=== PATIENT | female | born 1970 | race Two or more races ===

== ENCOUNTER 2024-12-23 16:14 | Inpatient (IN) | payer OTHER ==
[~2024-12-23] VITALS: Ht 167.6 cm; Wt 90.7 kg
[~2024-12-23 16:14] MED LIST: FLUVOXAMINE MAL25 MG PO; GRALISE600 MG; MINIVELLE1 EACH; PRAVASTATIN SOD20 MG PO; TOPROL XL25 M1
[2024-12-23] MEDS ORDERED: ZESTRIL5 MG PO (17:24)
[2024-12-23] MEDS ORDERED: METHYLPREDNISOLONE SOD SUCC 125 MG VIAL IV STA (17:54)
[2024-12-23] MEDS ORDERED: CEFTRIAXONE SODIUM 1,000 MG VIAL IV STA (17:54)
[2024-12-23] MEDS ORDERED: LIDOCAINE HCL 1% 10ML VIAL ONE (18:00)
[2024-12-23] MEDS ORDERED: CEFTRIAXONE SODIUM 1,000 MG VIAL ONE (18:00)
[2024-12-23] MEDS ORDERED: METHYLPREDNISOLONE SOD SUCC 125 MG VIAL ONE (18:00)
[2024-12-23 18:39] LABS: HEMATOCRIT 37.9 % (36.0-45.00); HEMOGLOBIN 13.1 g/dL (12.0-15.00); MEAN CELL VOLUME 90.5 fL (80.00-100.00); MEAN CORPUSCULAR HEMOGLOBIN 31.4 pg (27.00-32.0); MEAN CORPUSCULAR HGB CONC 34.7 g/dl (32.0-36.0); PLATELET COUNT 244 K/uL (150-450); RED BLOOD COUNT 4.18 M/uL (4.00-6.00); RED CELL DISTRIBUTION WIDTH 13.3 % (11.5-14.5)
[2024-12-23 19:13] LABS: CALCIUM 8.8 mg/dL (8.5-10.1); CREATININE SERUM 0.64 mg/dL (0.55-1.02); GFR 96.34; POTASSIUM 3.95 mEq/L (3.5-5.1)
[2024-12-23] MEDS ORDERED: LEVALBUTEROL HCL 1.25 MG/3 ML SOLUTION IH SCH (20:15)
[2024-12-23] MEDS ORDERED: BUDESONIDE 0.5 MG/2 ML AMPUL.NEB IH SCH (20:15)
[2024-12-23] MEDS ORDERED: BUDESONIDE 0.5 MG/2 ML AMPUL.NEB IH ONE (20:59)
[2024-12-23] MEDS ORDERED: LEVALBUTEROL HCL 1.25 MG/3 ML SOLUTION IH ONE (20:59)
[2024-12-23 21:08] LABS: ABG PH 7.401 (7.35-7.45); ABG PO2 70.2 mmHg (80-100); ABG pCO2 41.6 mmHg (35-45); BASE EXCESS 0.4 mmol/l; BICARBONATE 25.3 mmol/l (23-25); SaO2 93.9 %; Tco2 26.5 mmol/l
[2024-12-23 21:49] LABS: allen test SATISFACTORY; puncture site RADIAL RIGHT
[2024-12-23 21:50] LABS: o2 21 %
[2024-12-24] MEDS ORDERED: 0.9 % SODIUM CHLORIDE 1,000 ML IV SCH (01:00)
[2024-12-24] MEDS ORDERED: IPRATROPIUM/ALBUTEROL SULFATE 3 ML AMPUL.NEB IH SCH (01:00)
[2024-12-24 03:26] VITALS: BP 117/75; O2SAT 96
[2024-12-24 04:30] VITALS: BP 116/65; O2SAT 90
[2024-12-24] MEDS ORDERED: METHYLPREDNISOLONE SOD SUCC 40 MG VIAL IV SCH (06:00)
[2024-12-24] MEDS ORDERED: AZITHROMYCIN 500 MG VIAL IV ONE (08:37)
[2024-12-24] MEDS ORDERED: CEFTRIAXONE SODIUM 2,000 MG in 0.9 % SODIUM CHLORIDE 100 ML IV SCH (09:00)
[2024-12-24] MEDS ORDERED: METOPROLOL TARTRATE 25 MG TABLET PO SCH (09:00)
[2024-12-24] MEDS ORDERED: AZITHROMYCIN 500 MG VIAL IV SCH (09:00)
[2024-12-24] MEDS ORDERED: LISINOPRIL 5 MG TABLET PO SCH (09:00)
[2024-12-24 09:41] VITALS: BP 120/66; O2SAT 94
[2024-12-24] MEDS ORDERED: SIMVASTATIN 20 MG TABLET PO SCH (17:00)
[2024-12-24] MEDS ORDERED: LACTOBACILLUS ACIDOPHILUS 1 CAP CAP PO SCH (17:00)
[2024-12-24] MEDS ORDERED: PANTOPRAZOLE SODIUM 40 MG TABLET.DR PO SCH (17:06)
[2024-12-24] MEDS ORDERED: ENOXAPARIN SODIUM 40 MG/0.4 ML SYRINGE SUBCUTANEO SCH (17:07)
[2024-12-24] MEDS ORDERED: CODEINE PHOSPHATE/GUAIFENESIN 5 ML ML PO PRN (17:15)
[2024-12-24] MEDS ORDERED: BENZONATATE 100 MG CAPSULE PO PRN (17:15)
[2024-12-24 17:22] VITALS: BP 122/76; O2SAT 93
[2024-12-24] MEDS ORDERED: PANTOPRAZOLE SODIUM 40 MG TABLET.DR PO ONE (20:51)
[2024-12-24] MEDS ORDERED: PATIENTS OWN MEDICATION (MEDICAMENTO EN PISO) PO SCH (21:00)
[2024-12-24] MEDS ORDERED: GABAPENTIN 600 MG TABLET PO SCH (21:00)
[2024-12-25 00:55] VITALS: BP 144/72
[2024-12-25] MEDS ORDERED: AZITHROMYCIN 500 MG VIAL IV ONE (07:52)
[2024-12-25 09:51] VITALS: BP 147/82; O2SAT 96
[2024-12-25] MEDS ORDERED: CLONAZEPAM 1 MG TABLET PO SCH (10:50)
[2024-12-25] MEDS ORDERED: CODEINE PHOSPHATE/GUAIFENESIN 5 ML ML PO PRN (11:08)
[2024-12-25] MEDS ORDERED: GUAIFENESIN/DEXTROMETHORPHAN 100MG/10ML BLIST.PACK PO PRN (15:15)
[2024-12-25 16:37] VITALS: BP 127/52; O2SAT 100
[2024-12-25] MEDS ORDERED: METOPROLOL TARTRATE 25 MG TABLET PO SCH (17:00)
[2024-12-26 01:40] VITALS: BP 145/80; O2SAT 97
[2024-12-26] MEDS ORDERED: AZITHROMYCIN 500 MG VIAL IV ONE (08:00)
[2024-12-26 08:44] VITALS: BP 168/88
[2024-12-26] MEDS ORDERED: LISINOPRIL 5 MG TABLET PO STA (11:15)
[2024-12-26] MEDS ORDERED: ACYCLOVIR 400 MG TABLET PO STA (11:54)
[2024-12-26] MEDS ORDERED: POLYETHYLENE GLYCOL 3350 17 GM BLIST.PACK PO STA (11:55)
[2024-12-26 12:30] VITALS: BP 136/82
[2024-12-26 16:00] VITALS: BP 131/84; O2SAT 96
[2024-12-26] MEDS ORDERED: POLYETHYLENE GLYCOL 3350 17 GM BLIST.PACK PO SCH (17:00)
[2024-12-26] MEDS ORDERED: DOCUSATE SODIUM 100MG CAP PO NR (19:00)
[2024-12-26] MEDS ORDERED: ACYCLOVIR 400 MG TABLET PO SCH (21:00)
[2024-12-27 00:37] VITALS: BP 130/74; O2SAT 96
[2024-12-27 06:32] LABS: HEMATOCRIT 34.3 % (36.0-45.00); HEMOGLOBIN 11.8 g/dL (12.0-15.00); MEAN CELL VOLUME 91.1 fL (80.00-100.00); MEAN CORPUSCULAR HEMOGLOBIN 31.3 pg (27.00-32.0); MEAN CORPUSCULAR HGB CONC 34.3 g/dl (32.0-36.0); PLATELET COUNT 234 K/uL (150-450); RED BLOOD COUNT 3.76 M/uL (4.00-6.00); RED CELL DISTRIBUTION WIDTH 12.8 % (11.5-14.5)
[2024-12-27 07:17] LABS: ALBUMIN 2.8 gm/dL (3.4-5.0); BILIRUBIN TOTAL 0.42 mg/dL (0.3-1.2); CALCIUM 8.3 mg/dL (8.5-10.1); CREATININE SERUM 0.5 mg/dL (0.55-1.02); GFR 128.09; GLOBULINA 3.2 G/DL (2.4-3.5); PHOSPHOROUS 4.1 mg/dL (2.5-4.9); POTASSIUM 4.28 mEq/L (3.5-5.1)
[2024-12-27] MEDS ORDERED: AZITHROMYCIN 500 MG VIAL IV ONE (08:22)
[2024-12-27 08:57] VITALS: BP 158/78; O2SAT 97
[2024-12-27] MEDS ORDERED: DOCUSATE SODIUM 100MG CAP PO SCH (09:00)
[2024-12-27] MEDS ORDERED: LISINOPRIL 10 MG TABLET PO SCH (09:00)
[2024-12-27] MEDS ORDERED: IRON FUM,PS/FOLIC/BCOMP,C NO.9 1 CAP CAPSULE PO SCH (11:27)
[2024-12-27] MEDS ORDERED: AMINO ACIDS 1 EACH TABLET PO SCH (13:00)
[2024-12-27 18:03] VITALS: BP 137/78; O2SAT 97
[2024-12-27 21:42] LABS: ABG PH 7.422 (7.35-7.45); ABG PO2 76.3 mmHg (80-100); ABG pCO2 47.6 mmHg (35-45); BASE EXCESS 4.9 mmol/l; BICARBONATE 30.3 mmol/l (23-25); SaO2 95.6 %; Tco2 31.8 mmol/l
[2024-12-27 22:54] LABS: allen test SATISFACTORY; o2 21 %; puncture site RADIAL LEFT
[2024-12-28] VITALS: BP 141/80; O2SAT 95
[2024-12-28 08:25] VITALS: BP 149/74; O2SAT 96
[2024-12-28] MEDS ORDERED: AZITHROMYCIN 500 MG VIAL IV ONE (09:12)
[2024-12-28 17:13] VITALS: BP 130/74
[2024-12-29] VITALS: BP 128/78; O2SAT 92
[2024-12-29] MEDS ORDERED: AZITHROMYCIN 500 MG VIAL IV ONE (08:25)
[2024-12-29 09:29] VITALS: BP 141/87
[2024-12-29] MEDS ORDERED: SYMBICORT 80/10.2 GM IH (13:18)
[2024-12-29] MEDS ORDERED: LOPRESSOR25 MG PO (13:19)
[2024-12-29] MEDS ORDERED: NEURONTIN600 MG PO (13:19)
[2024-12-29] MEDS ORDERED: INTEGRA PLUS C1 EACH PO (13:19)
[2024-12-29] MEDS ORDERED: SIMVASTATIN20 MG PO (13:19)
[2024-12-29] MEDS ORDERED: LISINOPRIL10 MG PO (13:19)
[2024-12-29] MEDS ORDERED: BENZONATATE100 MG PO (13:20)
[2024-12-29] MEDS ORDERED: PANTOPRAZOLE SO40 MG PO (13:20)
== END 2024-12-29 14:17 | disposition home or self-care (01) | DRG 195 ==
LOC: ER 16:16 → MEDI 12-24 00:59
PROVIDERS: General Practice; Internal Medicine; ADMIT Internal Medicine; ATTEND Internal Medicine
PROC: BW24ZZZ Computerized Tomography (CT Scan) of Chest and Abdomen (ICD-10-PCS; principal; 2024-12-23)
DX: J18.9 Pneumonia, unspecified organism (principal); R09.02 Hypoxemia; J98.01 Acute bronchospasm; I10 Essential (primary) hypertension; G62.9 Polyneuropathy, unspecified; D64.9 Anemia, unspecified

== ENCOUNTER 2025-05-08 07:05 | Emergency (ER) | payer OTHER ==
[~2025-05-08] VITALS: Ht 167.6 cm; Wt 90.7 kg
[~2025-05-08 07:05] MED LIST changes: +BENZONATATE100 MG PO; +INTEGRA PLUS C1 EACH PO; +LISINOPRIL10 MG PO; +LOPRESSOR25 MG PO; +NEURONTIN600 MG PO; +PANTOPRAZOLE SO40 MG PO; +SIMVASTATIN20 MG PO; +SYMBICORT 80/10.2 GM IH; +ZESTRIL5 MG PO
[2025-05-08] MEDS ORDERED: ZOCOR20 MG PO (07:48)
[2025-05-08 07:50] VITALS: BP 118/75; O2SAT 95
[2025-05-08] MEDS ORDERED: NEURONTIN600 M1 PO (07:50)
[2025-05-08] MEDS ORDERED: 0.9 % SODIUM CHLORIDE 1,000 ML IV STA (09:15)
[2025-05-08 10:08] LABS: BASO % 0.2 % (0.1-1.2); EOS # 0.00 (0.04-0.54); EOS % 0.0 % (0.7-7.0); LYMPH # 0.90 (1.18-3.74); LYMPH % 6.9 % (19.3-53.1); MEAN PLATELET VOLUME 10.30 fl (9.4-12.4); MONO # 0.90 (0.24-0.82); MONO % 6.9 % (4.7-12.5); NEUT # 11.21 (1.56-6.13); NEUT % 85.7 % (34.0-71.1); RED CELL DISTRIBUTION WIDTH 12.1 % (11.6-14.4)
[2025-05-08 10:38] LABS: BUN CREA RATIO 11.0 (7.0-25.0); CREATININE SERUM 0.72 mg/dL (0.55-1.02); GFR 84.1; GLUCOSE FASTING 103.0 mg/dL (65-100); OSMOLALITY SERUM 280.0 MOSM/KG (275-295)
== END 2025-05-08 13:41 | disposition home or self-care (01) ==
LOC: ER 07:05
PROVIDERS: Emergency Medicine
DX: K52.89 Other specified noninfective gastroenteritis and colitis (principal); E78.00 Pure hypercholesterolemia, unspecified; I10 Essential (primary) hypertension

== ENCOUNTER 2025-05-11 15:32 | Emergency (ER) | payer OTHER ==
[~2025-05-11] VITALS: Ht 167.6 cm; Wt 90.7 kg
[~2025-05-11 15:32] MED LIST changes: +NEURONTIN600 M1 PO; +ZOCOR20 MG PO
[2025-05-11] MEDS ORDERED: CIPRO500 MG (15:45)
[2025-05-11] MEDS ORDERED: METRONIDAZOLE500 MG (15:45)
[2025-05-11] MEDS ORDERED: 0.9 % SODIUM CHLORIDE 1,000 ML IV STA (16:23)
[2025-05-11] MEDS ORDERED: FAMOTIDINE/PF 20 MG/2 ML VIAL IV PUSH STA (16:30)
[2025-05-11 17:16] LABS: BASO % 0.4 % (0.1-1.2); EOS # 0.11 (0.04-0.54); EOS % 1.4 % (0.7-7.0); LYMPH # 1.83 (1.18-3.74); LYMPH % 22.8 % (19.3-53.1); MEAN PLATELET VOLUME 9.80 fl (9.4-12.4); MONO # 0.99 (0.24-0.82); NEUT # 5.05 (1.56-6.13); NEUT % 62.7 % (34.0-71.1); RED CELL DISTRIBUTION WIDTH 11.9 % (11.6-14.4)
[2025-05-11 17:20] LABS: MONO % 12.3 % (4.7-12.5)
[2025-05-11 17:46] LABS: ALT/SGPT 34.0 U/L (12-78); AST/SGOT 27.0 U/L (15-37); BILIRUBIN TOTAL 0.49 mg/dL (0.3-1.2); BUN CREA RATIO 20.0 (7.0-25.0); CREATININE SERUM 0.8 mg/dL (0.55-1.02); GFR 74.47; GLOBULINA 3.8 G/DL (2.4-3.5); GLUCOSE FASTING 99.0 mg/dL (65-100); OSMOLALITY SERUM 286.0 MOSM/KG (275-295)
[2025-05-11 18:03] LABS: URINE APPEARANCE Clear; URINE BILIRRUBIN Negative (NEGATIVE); URINE BLOOD Negative; URINE COLOR Dark Yellow; URINE GLUCOSE Negative (NEGATIVE); URINE KETONE Trace (NEGATIVE); URINE LEUKOCYTE Small; URINE NITRATE Negative; URINE PROTEIN 30 (NEGATIVE); URINE UROBILINOGEN 1.0 E.U./dl
[2025-05-11 18:07] LABS: URINE BACTERIA 1059.5 uL (0.0-1933); URINE CAST 6.30 uL (0.0-1.40); URINE EPITHELIAL CELLS 51.0 uL (0.0-38.8); URINE RBC 56.7 uL (0.0-20.8); URINE WBC 65.5 uL (0.0-23.2)
[2025-05-11 18:12] LABS: TYPE CELLS SQUAMOUS
[2025-05-11 18:14] LABS: URINE CRYSTALS MODERATE /HPF
[2025-05-11 18:15] LABS: URINE MUCUS SCANT; URINE YEAST FEW /hpf
== END 2025-05-11 18:55 | disposition home or self-care (01) ==
LOC: ER 15:32
PROVIDERS: General Practice
DX: R35.0 Frequency of micturition (principal)

== ENCOUNTER 2025-05-12 21:43 | Emergency (ER) | payer OTHER ==
[~2025-05-12] VITALS: Ht 167.6 cm; Wt 90.7 kg
[~2025-05-12 21:43] MED LIST changes: +CIPRO500 MG; +METRONIDAZOLE500 MG
[2025-05-13 00:12] LABS: BASO % 0.5 % (0.1-1.2); RED CELL DISTRIBUTION WIDTH 12.1 % (11.6-14.4)
[2025-05-13 00:21] LABS: EOS # 0.17 (0.04-0.54); EOS % 2.2 % (0.7-7.0); LYMPH # 3.34 (1.18-3.74); LYMPH % 43.8 % (19.3-53.1); MEAN PLATELET VOLUME 9.70 fl (9.4-12.4); MONO # 1.06 (0.24-0.82); NEUT # 2.99 (1.56-6.13); NEUT % 39.3 % (34.0-71.1)
[2025-05-13 00:33] LABS: ALT/SGPT 32.0 U/L (12-78); AST/SGOT 29.0 U/L (15-37); BILIRUBIN TOTAL 0.38 mg/dL (0.3-1.2); BUN CREA RATIO 25.0 (7.0-25.0); CREATININE SERUM 0.6 mg/dL (0.55-1.02); GFR 103.79; GLOBULINA 3.7 G/DL (2.4-3.5); GLUCOSE FASTING 100.0 mg/dL (65-100); OSMOLALITY SERUM 288.0 MOSM/KG (275-295)
[2025-05-13 00:37] LABS: EOSINOPHIL MAN 2.0 %; LYMPHOCYTE MAN 39.0 %; MONO % 13.9 % (4.7-12.5); MONOCYTE MAN 8.0 %; NEUTROPHILS MAN 44.0 %
[2025-05-13 01:27] LABS: URINE APPEARANCE Clear; URINE BILIRRUBIN Negative (NEGATIVE); URINE BLOOD Negative; URINE COLOR Yellow; URINE GLUCOSE Negative (NEGATIVE); URINE KETONE Negative (NEGATIVE); URINE LEUKOCYTE Negative; URINE NITRATE Negative; URINE PROTEIN Negative (NEGATIVE); URINE UROBILINOGEN 0.2 E.U./dl
[2025-05-13 01:30] LABS: URINE BACTERIA 155.9 uL (0.0-1933); URINE EPITHELIAL CELLS 23.2 uL (0.0-38.8); URINE RBC 13.6 uL (0.0-20.8); URINE WBC 5.5 uL (0.0-23.2)
[2025-05-13 02:14] LABS: URINE CAST 0.00 uL (0.0-1.40); URINE CRYSTALS MANY /HPF
== END 2025-05-13 03:03 | disposition home or self-care (01) ==
LOC: ER 22:30
PROVIDERS: General Practice
DX: R34 Anuria and oliguria (principal)